=== PATIENT | female | born 1960 | race Caucasian/White ===

== ENCOUNTER 2018-07-21 15:21 | Emergency (ER) | payer MEDICAID ==
[~2018-07-21] VITALS: Ht 165.1 cm; Wt 85.3 kg
[2018-07-21 15:24] VITALS: BP 129/89; Ht 165.1 cm; Wt 85.3 kg
== END 2018-07-21 18:14 | disposition home or self-care (01) ==
LOC: ED 15:21
DX: B34.9 Viral infection, unspecified (principal); R51 Headache
CPT/HCPCS: 87804; J1885